=== PATIENT | male | born 1980 | race American Indian/Alaskan Native ===

== ENCOUNTER 2019-06-02 19:34 | Emergency (ER) | payer OTHER ==
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
[2019-06-02] MEDS ORDERED: IBUPROFEN 600 MG TAB PO ONE (22:19)
[2019-06-02] MEDS ORDERED: ACETAMINOPHEN 325 MG TAB PO ONE (22:19)
[2019-06-03 01:21] VITALS: BP 97/67
== END 2019-06-02 23:20 | disposition home or self-care (01) ==
LOC: ED 19:34
DX: R51 Headache (principal); M54.5 Low back pain; F17.200 Nicotine dependence, unspecified, uncomplicated; V49.49XA Driver injured in collision with other motor vehicles in traffic accident, initial encounter; Y93.89 Activity, other specified; Y92.410 Unspecified street and highway as the place of occurrence of the external cause; Y99.8 Other external cause status
CPT/HCPCS: 72100